=== PATIENT | male | born 1970 | race Caucasian/White ===

== ENCOUNTER 2017-11-30 10:51 | Outpatient (CLI) | payer OTHER | END 2017-11-30 17:00 | disposition home or self-care (01) | LOC: RAD 10:51 | DX: M25.531 Pain in right wrist (principal) ==

== ENCOUNTER 2020-08-13 08:53 | Outpatient (CLI) | payer OTHER | END 2020-08-13 09:03 | disposition home or self-care (01) | LOC: NUCLEAR 08:53 | PROVIDERS: ATTEND Specialist | DX: I87.2 Venous insufficiency (chronic) (peripheral) (principal); I73.9 Peripheral vascular disease, unspecified ==

== ENCOUNTER 2023-08-17 15:57 | Emergency (ER) | payer OTHER ==
[~2023-08-17] VITALS: Ht 172.7 cm; Wt 94.8 kg
[2023-08-17 17:17] LABS: HEMATOCRIT 43.4 % (39.0-48.0); MEAN CELL VOLUME 87.4 fL (80.0-100.00); MEAN CORPUSCULAR HEMOGLOBIN 30.2 pg (27.00-32.0); MEAN CORPUSCULAR HGB CONC 34.5 g/dl (32.0-36.0); PLATELET COUNT 318 K/uL (150-450); RED BLOOD COUNT 4.97 M/uL (4.00-6.00); RED CELL DISTRIBUTION WIDTH 13.7 % (11.5-14.5)
[2023-08-17 17:26] LABS: URINE APPEARANCE Clear; URINE BILIRRUBIN Negative (NEGATIVE); URINE BLOOD Negative; URINE COLOR Yellow; URINE GLUCOSE Negative (NEGATIVE); URINE LEUKOCYTE Negative; URINE NITRATE Negative; URINE PROTEIN Negative (NEGATIVE); URINE UROBILINOGEN 0.2 E.U./dl
[2023-08-17 17:29] LABS: URINE WBC 3.8 uL (0.0-23.2)
[2023-08-17 17:34] LABS: URINE BACTERIA 2.5 uL (0.0-1933); URINE EPITHELIAL CELLS 1.3 uL (0.0-38.8)
[2023-08-17 17:38] LABS: CALCIUM 9.5 mg/dL (8.5-10.1); CREATININE SERUM 1.07 mg/dL (0.70-1.30); GFR 72.02; POTASSIUM 4.07 mEq/L (3.5-5.1)
== END 2023-08-17 17:47 | disposition home or self-care (01) ==
LOC: ER 15:58
PROVIDERS: General Practice
DX: R10.2 Pelvic and perineal pain (principal)